=== PATIENT | male | born 1950 | race Caucasian/White ===

== ENCOUNTER 2020-07-18 15:05 | Emergency (ER) | payer MEDICARE, MEDICAID ==
[~2020-07-18] VITALS: Ht 182.9 cm; Wt 113.6 kg
[2020-07-18] MEDS ORDERED: OXYcodone/APAP 5/325MG TABLET PO ONE (15:30)
[2020-07-18] MEDS ORDERED: PLEASE ENTER HEIGHT AND WEIGHT MC SCH (15:30)
[2020-07-18 16:19] VITALS: BP 136/74
== END 2020-07-18 16:29 | disposition home or self-care (01) ==
LOC: ED 16:15
DX: R51.9 Headache, unspecified (principal); L98.8 Other specified disorders of the skin and subcutaneous tissue; R94.31 Abnormal electrocardiogram [ECG] [EKG]; E11.9 Type 2 diabetes mellitus without complications
CPT/HCPCS: 70450; 93005; 99284